=== PATIENT | female | born 1990 | race Caucasian/White ===

== ENCOUNTER 2023-12-27 10:41 | Outpatient (CLI) | payer MEDICAID, SELFPAY | END 2023-12-27 10:42 | disposition home or self-care (01) | LOC: NFLDREF 12-28 13:20 | PROVIDERS: PCP Physician Assistant Medical; Referring Provider Physician Assistant Medical; Visit Provider Physician Assistant Medical | DX: Z11.3 Encounter for screening for infections with a predominantly sexual mode of transmission (principal); Z11.59 Encounter for screening for other viral diseases; Z11.4 Encounter for screening for human immunodeficiency virus [HIV]; Z13.228 Encounter for screening for other metabolic disorders; Z13.220 Encounter for screening for lipoid disorders; Z13.29 Encounter for screening for other suspected endocrine disorder | CPT/HCPCS: 80053; 80061; 84443; 86592; 86703; 86706; 86803; 87340; 87491; 87591 ==

== ENCOUNTER 2024-08-07 13:09 | Outpatient (CLI) | payer MEDICAID, SELFPAY | END 2024-08-07 13:10 | disposition home or self-care (01) | LOC: NFLDREF 08-13 02:36 | PROVIDERS: PCP Physician Assistant Medical; Referring Provider Physician Assistant Medical; Visit Provider Physician Assistant Medical | DX: Z11.3 Encounter for screening for infections with a predominantly sexual mode of transmission (principal); Z11.59 Encounter for screening for other viral diseases; Z11.4 Encounter for screening for human immunodeficiency virus [HIV] | CPT/HCPCS: 86592; 86703; 86706; 86803; 87340; 87491; 87591 ==